=== PATIENT | male | born 1985 | race Caucasian/White ===

== ENCOUNTER 2021-01-01 11:25 | Inpatient (IN) | payer OTHER ==
[~2021-01-01] VITALS: Ht 175.3 cm; Wt 176.8 kg
[~2021-01-01 11:25] MED LIST: OMNIPAQUE 350 MG/ML, 100ML BOTTLE ONE
[2021-01-01 12:43] LABS: BASOPHILS % (AUTO) 0 % (0-1); EOSINOPHILS % (AUTO) 1 % (1-7); LYMPHOCYTES % (AUTO) 16 % (22-44); MEAN CORPUSCULAR HEMOGLOBIN 28.9 pg (27.5-34.5); MEAN CORPUSCULAR HGB CONC 33.9 g/dL (33.2-36.2); MONOCYTES % (AUTO) 8 % (2-9); NEUTROPHILS % (AUTO) 75 % (42-75); PLATELET COUNT 301 x10^3/uL (130-400); RED BLOOD COUNT 5.24 x10^6/uL (4.38-5.82); RED CELL DISTRIBUTION WIDTH 14.2 % (9.4-14.8)
[2021-01-01 12:46] LABS: ALBUMIN 3.8 g/dL (3.4-5.0); ANION GAP 5 mmol/L (5-15); CALCIUM 9.6 mg/dL (8.5-10.1); CHLORIDE 102 mmol/L (98-107); CREATININE 0.95 mg/dL (0.7-1.3)
--- NOTE | 2021-01-01 14:17 | NUR ---
ASSUMED CARE OF PATIENT. PATIENT REPORTS RIGHT GROIN PAIN. HX OF HERNIA REPAIR. VS STABLE. 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 SINUS TACH NOTED. AT BEDSIDE. CALL LIGHT IN PLACE. WILL CONTINUE TO MONITOR.
--- NOTE | 2021-01-01 14:56 | NUR ---
DR SIBLEY IN ROOM UPDATING PATIENT.
[2021-01-01] MEDS ORDERED: HYDROmorphone 1 MG/ML, 1ML INJ IV ONE (15:00)
[2021-01-01] MEDS ORDERED: ONDANSETRON 2MG/ML, 2ML IVPush ONE (15:00)
--- NOTE | 2021-01-01 15:06 | NUR ---
LAB IN ROOM GETTING BLOOD CULTURES
--- NOTE | 2021-01-01 15:13 | NUR ---
PT REPORTS HE IS NOT ABLE TO GIVE UA AT THIS TIME.
[2021-01-01] MEDS ORDERED: HYDROmorphone 1 MG/ML, 1ML INJ ONE ×2 (15:15→17:37)
[2021-01-01] MEDS ORDERED: ONDANSETRON 2MG/ML, 2ML ONE ×2 (15:15→17:37)
--- NOTE | 2021-01-01 16:30 | NUR ---
PT WENT TO CT
--- NOTE | 2021-01-01 17:01 | NUR ---
US IN ROOM
[2021-01-01] MEDS ORDERED: SODIUM CHLORIDE 0.9% 1,000 ML IV ONE (17:30)
[2021-01-01] MEDS ORDERED: ONDANSETRON 2MG/ML, 2ML IVPush PRN (17:30)
[2021-01-01] MEDS ORDERED: CEFOTETAN PMX 1GM/50ML 50 ML IVPB ONE ×2 (17:30→21:30)
[2021-01-01] MEDS ORDERED: HYDROmorphone 1 MG/ML, 1ML INJ IVPush PRN (17:30)
[2021-01-01] MEDS ORDERED: SODIUM CHLORIDE FLUSH 10ML SYR IVF PRN (17:30)
--- NOTE | 2021-01-01 17:30 | NUR ---
DR SIBLEY HAS UPDATED PATIENT
--- NOTE | 2021-01-01 17:35 | NUR ---
both blood cultures drawn
[2021-01-01 17:56] LABS: MICROSCOPIC INDICATED
[2021-01-01 20:00] VITALS: BP 120/77
[2021-01-01] MEDS ORDERED: MELATONIN 5 MG TABLET PO PRN (21:00)
[2021-01-01] MEDS ORDERED: DOCUSATE 100 MG CAPSULE PO PRN (21:00)
[2021-01-01] MEDS ORDERED: LIDODERM 5% PATCH TD PRN (21:00)
[2021-01-01] MEDS: SODIUM CHLORIDE 0.9% 1,000 ML IV SCH (21:21)
[2021-01-01] MEDS: NICOTINE 7 MG/24 HR PATCH.TD24 TD SCH (22:10)
[2021-01-01] MEDS: INSULIN LISPRO 100 UNITS/ML, PEN SQ-INSULIN SCH (23:00)
[2021-01-01] MEDS: HYDROmorphone 2 MG/ML, 1ML IVPush PRN (23:01)
[2021-01-02 01:06] VITALS: BP 134/82
[2021-01-02] MEDS: HYDROmorphone 2 MG/ML, 1ML IVPush PRN ×3 (02:20→09:15)
[2021-01-02] MEDS: SODIUM CHLORIDE 0.9% 1,000 ML IV SCH (03:36)
[2021-01-02 05:29] LABS: BASOPHILS % (AUTO) 0 % (0-1); EOSINOPHILS % (AUTO) 2 % (1-7); LYMPHOCYTES % (AUTO) 17 % (22-44); MEAN CORPUSCULAR HEMOGLOBIN 29.4 pg (27.5-34.5); MONOCYTES % (AUTO) 9 % (2-9); NEUTROPHILS % (AUTO) 72 % (42-75); PLATELET COUNT 258 x10^3/uL (130-400); RED BLOOD COUNT 4.55 x10^6/uL (4.38-5.82)
[2021-01-02] MEDS ORDERED: CEFOTETAN PMX 2GM/50ML 50 ML IV SCH (05:30)
[2021-01-02 05:41] LABS: CHLORIDE 102 mmol/L (98-107)
[2021-01-02 05:46] LABS: ANION GAP 8 mmol/L (5-15); CALCIUM 8.6 mg/dL (8.5-10.1); CREATININE 0.96 mg/dL (0.7-1.3)
[2021-01-02] MEDS: CEFTAROLINE 600 MG in SODIUM CHLORIDE 0.9% 100 ML IV SCH ×3 (06:45→20:49)
[2021-01-02] MEDS: INSULIN LISPRO 100 UNITS/ML, PEN SQ-INSULIN SCH ×4 (07:26→20:21)
[2021-01-02] MEDS: ONDANSETRON 2MG/ML, 2ML IVPush PRN (09:15)
[2021-01-02] MEDS: NICOTINE 7 MG/24 HR PATCH.TD24 TD SCH (09:16)
[2021-01-02] MEDS ORDERED: CYCL10TA2 PO (09:29)
[2021-01-02] MEDS ORDERED: OXYcodone IR 5MG TABLET PO PRN (09:30)
[2021-01-02] MEDS ORDERED: CYCLOBENZAPRINE 10 MG TABLET ONE (09:47)
[2021-01-02] MEDS: CYCLOBENZAPRINE 10 MG TABLET PO SCH ×2 (09:55→20:22)
[2021-01-02 10:39] VITALS: BP 122/71
[2021-01-02] MEDS: ENOXAPARIN 30 MG/0.3 ML SQ SCH (14:09)
[2021-01-02 14:20] VITALS: BP 138/87
[2021-01-02 14:55] VITALS: BP 125/84
[2021-01-02] MEDS: ACETAMINOPHEN 325 MG TABLET PO PRN ×2 (15:07→21:01)
[2021-01-02 15:32] VITALS: BP 125/82
[2021-01-02] MEDS: HYDROcodone/APAP 5/325 TABLET PO PRN (17:10)
[2021-01-02 19:30] VITALS: BP 133/75
[2021-01-03] MEDS: ENOXAPARIN 30 MG/0.3 ML SQ SCH ×3 (01:58→20:31)
[2021-01-03 02:07] VITALS: BP 155/84
[2021-01-03] MEDS: HYDROmorphone 2 MG/ML, 1ML IVPush PRN ×5 (03:58→20:37)
[2021-01-03] MEDS: ONDANSETRON 2MG/ML, 2ML IVPush PRN (04:13)
[2021-01-03] MEDS: INSULIN LISPRO 100 UNITS/ML, PEN SQ-INSULIN SCH ×4 (07:00→20:47)
[2021-01-03 07:20] VITALS: BP 101/65
[2021-01-03] MEDS: CYCLOBENZAPRINE 10 MG TABLET PO SCH ×2 (08:05→20:31)
[2021-01-03] MEDS: NICOTINE 7 MG/24 HR PATCH.TD24 TD SCH (08:11)
[2021-01-03] MEDS: CEFTAROLINE 600 MG in SODIUM CHLORIDE 0.9% 100 ML IV SCH ×2 (08:11→20:31)
[2021-01-03] MEDS ORDERED: MIDAZOLAM 1 MG/ML, 2ML ONE (13:22)
[2021-01-03] MEDS ORDERED: HYDROmorphone 1 MG/ML, 1ML INJ ONE (13:22)
[2021-01-03] MEDS ORDERED: FENTANYL PF 250 MCG/5ML ONE (13:22)
[2021-01-03] MEDS ORDERED: EPINEPHRINE 1 MG/ML, 1ML ONE (13:43)
[2021-01-03] MEDS ORDERED: BACITRACIN 50,000 UNIT ONE (13:43)
[2021-01-03] MEDS ORDERED: BUPIVACAINE/PF 0.5% ONE (13:43)
[2021-01-03] MEDS ORDERED: LIDOCAINE-MPF 2% ,5ML ONE (13:57)
[2021-01-03] MEDS ORDERED: ONDANSETRON 2MG/ML, 2ML ONE (13:57)
[2021-01-03] MEDS ORDERED: PHENYLEPHRINE 10 MG/ML ONE (13:57)
[2021-01-03] MEDS ORDERED: PROPOFOL 10 MG/ML, 20ML ONE ×2 (13:57)
[2021-01-03] MEDS ORDERED: ROCURONIUM 10MG/ML,5ML ONE (13:57)
[2021-01-03] MEDS ORDERED: SUGAMMADEX 200 MG/2 ML IVPush ONE (13:57)
[2021-01-03] MEDS ORDERED: CHLORHEXIDINE 15 ML UDC PO ONE (14:00)
[2021-01-03] MEDS ORDERED: ACETAMINOPHEN 650 MG/20.3 ML UDC ONE (15:22)
[2021-01-03] MEDS ORDERED: OXYcodone 5 MG/5 ML ORAL.SOL UDC ONE ×2 (15:22→16:06)
[2021-01-03] MEDS ORDERED: LABETALOL 5MG/ML, 20ML ONE (15:26)
[2021-01-03] MEDS ORDERED: FENTANYL PF 100 MCG/2ML ONE (15:26)
[2021-01-03] MEDS ORDERED: HALOPERIDOL 5 MG/ML IV PRN (15:30)
[2021-01-03] MEDS ORDERED: HYDROmorphone 1 MG/ML, 1ML INJ IVPush PRN (15:30)
[2021-01-03] MEDS ORDERED: EPHEDRINE 50 MG/ML, 1ML IVPush PRN (15:30)
[2021-01-03] MEDS ORDERED: ACETAMINOPHEN 325 MG TABLET PO PRN (15:30)
[2021-01-03] MEDS ORDERED: FENTANYL PF 100 MCG/2ML IV PRN (15:30)
[2021-01-03] MEDS ORDERED: ONDANSETRON 2MG/ML, 2ML IVPush PRN (15:30)
[2021-01-03] MEDS ORDERED: METOPROLOL 1 MG/ML, 5ML IV PRN (15:30)
[2021-01-03] MEDS ORDERED: hydrALAzine 20 MG/ML, 1ML IV PRN (15:30)
[2021-01-03] MEDS ORDERED: OXYcodone 5 MG/5 ML ORAL.SOL UDC PO PRN (15:30)
[2021-01-03] MEDS ORDERED: PROMETHAZINE 25 MG/ML, 1ML IVPush PRN (15:30)
[2021-01-03] MEDS ORDERED: LABETALOL 5MG/ML, 20ML IV PRN (15:30)
[2021-01-03] MEDS ORDERED: DIPHENHYDRAMINE 50 MG/ML, 1ML IVPush PRN (15:30)
[2021-01-03] MEDS ORDERED: METOCLOPRAMIDE 5 MG/ML, 2ML IVPush PRN (15:30)
[2021-01-03] MEDS: metFORMIN 500 MG TABLET PO SCH (16:58)
[2021-01-03 20:00] VITALS: BP 110/70
[2021-01-03 23:49] VITALS: BP 114/66
[2021-01-04] MEDS: HYDROmorphone 2 MG/ML, 1ML IVPush PRN ×4 (00:51→11:47)
[2021-01-04 03:57] VITALS: BP 116/79
[2021-01-04] MEDS: INSULIN LISPRO 100 UNITS/ML, PEN SQ-INSULIN SCH ×4 (06:20→21:00)
[2021-01-04 07:34] VITALS: BP 122/77
[2021-01-04] MEDS: CEFTAROLINE 600 MG in SODIUM CHLORIDE 0.9% 100 ML IV SCH ×2 (09:07→21:18)
[2021-01-04] MEDS: ENOXAPARIN 30 MG/0.3 ML SQ SCH ×2 (09:08→21:18)
[2021-01-04] MEDS: metFORMIN 500 MG TABLET PO SCH ×2 (09:08→17:41)
[2021-01-04] MEDS: ACETAMINOPHEN 325 MG TABLET PO PRN ×2 (09:08→13:22)
[2021-01-04] MEDS: CYCLOBENZAPRINE 10 MG TABLET PO SCH ×2 (09:08→21:18)
[2021-01-04] MEDS: NICOTINE 7 MG/24 HR PATCH.TD24 TD SCH (11:50)
[2021-01-04 12:29] VITALS: BP 128/78
[2021-01-04] MEDS: HYDROcodone/APAP 5/325 TABLET PO PRN ×3 (13:22→21:18)
[2021-01-04 19:21] VITALS: BP 123/82
[2021-01-05] MEDS: ACETAMINOPHEN 325 MG TABLET PO PRN (00:12)
[2021-01-05 00:13] VITALS: BP 135/80
[2021-01-05 01:00] VITALS: BP 116/73
[2021-01-05] MEDS: INSULIN LISPRO 100 UNITS/ML, PEN SQ-INSULIN SCH ×4 (04:36→19:40)
[2021-01-05] MEDS: HYDROcodone/APAP 5/325 TABLET PO PRN (05:03)
[2021-01-05 07:26] VITALS: BP 119/76
[2021-01-05] MEDS: NICOTINE 7 MG/24 HR PATCH.TD24 TD SCH (07:57)
[2021-01-05] MEDS: CYCLOBENZAPRINE 10 MG TABLET PO SCH ×2 (07:57→21:51)
[2021-01-05] MEDS: metFORMIN 500 MG TABLET PO SCH ×2 (07:57→17:19)
[2021-01-05] MEDS: HYDROmorphone 2 MG/ML, 1ML IVPush PRN ×3 (07:58→14:30)
[2021-01-05] MEDS: ENOXAPARIN 30 MG/0.3 ML SQ SCH ×2 (10:10→21:51)
[2021-01-05] MEDS: CEFTAROLINE 600 MG in SODIUM CHLORIDE 0.9% 100 ML IV SCH ×2 (10:39→21:51)
[2021-01-05 12:44] VITALS: BP 120/71
[2021-01-05] MEDS: HYDROcodone/APAP 10/325 MG TABLET PO PRN ×2 (18:53→22:57)
[2021-01-05 19:11] VITALS: BP 107/65
[2021-01-06] MEDS: CEFTAROLINE 600 MG in SODIUM CHLORIDE 0.9% 100 ML IV SCH ×2 (00:30→12:40)
[2021-01-06 00:39] VITALS: BP 118/76
[2021-01-06] MEDS: HYDROcodone/APAP 10/325 MG TABLET PO PRN ×2 (05:14→08:32)
[2021-01-06] MEDS: ONDANSETRON 2MG/ML, 2ML IVPush PRN (05:20)
[2021-01-06] MEDS: HYDROmorphone 2 MG/ML, 1ML IVPush PRN ×2 (05:20→10:20)
[2021-01-06] MEDS: ACETAMINOPHEN 325 MG TABLET PO PRN (05:31)
[2021-01-06] MEDS: INSULIN LISPRO 100 UNITS/ML, PEN SQ-INSULIN SCH ×4 (07:00→21:00)
[2021-01-06 07:15] VITALS: BP 115/71
[2021-01-06] MEDS: metFORMIN 500 MG TABLET PO SCH ×2 (07:40→16:52)
[2021-01-06] MEDS: CYCLOBENZAPRINE 10 MG TABLET PO SCH ×2 (07:40→21:12)
[2021-01-06] MEDS: NICOTINE 7 MG/24 HR PATCH.TD24 TD SCH (07:40)
[2021-01-06] MEDS: ENOXAPARIN 30 MG/0.3 ML SQ SCH ×2 (07:41→21:13)
[2021-01-06 07:53] LABS: MEAN CORPUSCULAR HEMOGLOBIN 28.9 pg (27.5-34.5); MEAN CORPUSCULAR HGB CONC 33.8 g/dL (33.2-36.2); MEAN PLATELET VOLUME 6.3 fL (7.4-10.4); PLATELET COUNT 333 x10^3/uL (130-400); RED BLOOD COUNT 4.31 x10^6/uL (4.38-5.82)
[2021-01-06 08:23] LABS: <PLATELET ESTIMATE> ADEQUATE; <PLT MORPHOLOGY> NORMAL PLT MORPH; <RBC MORPHOLOGY> NORMAL; BAND#(MANUAL) 0.57 x10^3/uL; BANDS%(MANUAL) 7 % (0-7); EOS#(MANUAL) 0.25 x10^3/uL (0.0-0.4); EOS% (MANUAL) 3 % (1-7); LYMPH#(MANUAL) 1.15 x10^3/uL (1-3.4); LYMPHS% (MANUAL) 14 % (22-44); METAMYELOCYTES# (MANUAL) 0.16 x10^3/uL (0-0); METAMYELOCYTES% (MANUAL) 2 % (0-1); MONOS#(MANUAL) 0.33 x10^3/uL (0.3-2.7); MONOS% (MANUAL) 4 % (2-9); SEG#(MANUAL) 5.74 x10^3/uL (1.8-6.8); SEGS% (MANUAL) 70 % (42-75)
[2021-01-06] MEDS: KETOROLAC 30 MG/1 ML IVPush SCH ×3 (10:20→21:40)
[2021-01-06] MEDS: GABAPENTIN 300 MG CAPSULE PO SCH ×3 (10:26→21:12)
[2021-01-06] MEDS ORDERED: OMNIPAQUE 350 MG/ML, 150 ML BOTTLE ONE (11:56)
[2021-01-06 13:00] VITALS: BP 131/81
[2021-01-06] MEDS: OXYcodone/APAP 10/325MG TABLET PO PRN ×3 (14:45→23:40)
[2021-01-06] MEDS: NICOTINE 14MG/24 HR PATCH.TD24 TD SCH (18:09)
[2021-01-06 21:19] VITALS: BP 124/66
[2021-01-07] MEDS: CEFTAROLINE 600 MG in SODIUM CHLORIDE 0.9% 100 ML IV SCH (00:30)
[2021-01-07 02:55] VITALS: BP 107/67
[2021-01-07] MEDS: KETOROLAC 30 MG/1 ML IVPush SCH ×3 (03:25→16:15)
[2021-01-07] MEDS: OXYcodone/APAP 10/325MG TABLET PO PRN ×4 (05:19→19:52)
[2021-01-07 06:11] LABS: MEAN CORPUSCULAR HEMOGLOBIN 29.5 pg (27.5-34.5); MEAN CORPUSCULAR HGB CONC 34.3 g/dL (33.2-36.2); MEAN PLATELET VOLUME 6.2 fL (7.4-10.4); PLATELET COUNT 350 x10^3/uL (130-400); RED BLOOD COUNT 3.95 x10^6/uL (4.38-5.82); RED CELL DISTRIBUTION WIDTH 13.8 % (9.4-14.8)
[2021-01-07 06:20] LABS: ANION GAP 7 mmol/L (5-15); CALCIUM 8.7 mg/dL (8.5-10.1); CHLORIDE 101 mmol/L (98-107); CREATININE 0.88 mg/dL (0.7-1.3)
[2021-01-07] MEDS ORDERED: POTASSIUM CHLORIDE 20 MEQ TAB.ER.PRT PO ONE (06:30)
[2021-01-07 06:52] LABS: BASOS#(MANUAL) 0.08 x10^3/uL (0-0.1); BASOS% (MANUAL) 1 % (0-1); EOS#(MANUAL) 0.39 x10^3/uL (0.0-0.4); EOS% (MANUAL) 5 % (1-7); LYMPH#(MANUAL) 1.08 x10^3/uL (1-3.4); LYMPHS% (MANUAL) 14 % (22-44); METAMYELOCYTES# (MANUAL) 0.31 x10^3/uL (0-0); METAMYELOCYTES% (MANUAL) 4 % (0-1); MONOS#(MANUAL) 0.39 x10^3/uL (0.3-2.7); MONOS% (MANUAL) 5 % (2-9); MYELOCYTES# (MANUAL) 0.31 x10^3/uL (0-0); MYELOCYTES% (MANUAL) 4 % (0-0); SEG#(MANUAL) 5.16 x10^3/uL (1.8-6.8); SEGS% (MANUAL) 67 % (42-75)
[2021-01-07 06:53] LABS: <PLATELET ESTIMATE> ADEQUATE; <PLT MORPHOLOGY> NORMAL PLT MORPH; <RBC MORPHOLOGY> NORMAL
[2021-01-07] MEDS: INSULIN LISPRO 100 UNITS/ML, PEN SQ-INSULIN SCH ×4 (07:00→21:00)
[2021-01-07] MEDS: GABAPENTIN 300 MG CAPSULE PO SCH ×3 (09:34→21:07)
[2021-01-07] MEDS: CYCLOBENZAPRINE 10 MG TABLET PO SCH ×2 (09:34→21:07)
[2021-01-07] MEDS: metFORMIN 500 MG TABLET PO SCH (09:35)
[2021-01-07] MEDS: CLINDAMYCIN 300 MG CAPSULE PO SCH ×2 (09:35→16:16)
[2021-01-07] MEDS: ENOXAPARIN 30 MG/0.3 ML SQ SCH ×2 (09:36→21:08)
[2021-01-07 10:49] VITALS: BP 105/65
[2021-01-07] MEDS: CEPHALEXIN 500 MG CAPSULE PO SCH ×2 (12:07→16:16)
[2021-01-07] MEDS ORDERED: HYDROmorphone 1 MG/ML, 1ML INJ ONE (13:28)
[2021-01-07] MEDS ORDERED: HYDROmorphone 1 MG/ML, 1ML INJ IV ONE (13:30)
[2021-01-07 13:33] VITALS: BP 129/78
[2021-01-07] MEDS: NICOTINE 14MG/24 HR PATCH.TD24 TD SCH (16:36)
[2021-01-07 18:45] VITALS: BP 113/66
[2021-01-07] MEDS: MEROPENEM 1 GM in SODIUM CHLORIDE 0.9% 100 ML IV SCH (19:44)
[2021-01-08] MEDS: KETOROLAC 30 MG/1 ML IVPush SCH ×4 (01:14→18:04)
[2021-01-08] MEDS: OXYcodone/APAP 10/325MG TABLET PO PRN ×5 (01:14→21:07)
[2021-01-08 01:18] VITALS: BP 110/56
[2021-01-08] MEDS: MEROPENEM 1 GM in SODIUM CHLORIDE 0.9% 100 ML IV SCH ×4 (04:17→21:11)
[2021-01-08 05:44] LABS: HCT (SEDRATE) 34.8 % (39.2-51.8)
[2021-01-08] MEDS: INSULIN LISPRO 100 UNITS/ML, PEN SQ-INSULIN SCH ×4 (06:37→21:00)
[2021-01-08 07:03] LABS: MEAN CORPUSCULAR HEMOGLOBIN 29.1 pg (27.5-34.5); MEAN CORPUSCULAR HGB CONC 34.4 g/dL (33.2-36.2); MEAN PLATELET VOLUME 6.4 fL (7.4-10.4); PLATELET COUNT 342 x10^3/uL (130-400); RED BLOOD COUNT 4.16 x10^6/uL (4.38-5.82)
[2021-01-08 07:14] LABS: ANION GAP 5 mmol/L (5-15); CALCIUM 8.7 mg/dL (8.5-10.1); CHLORIDE 105 mmol/L (98-107); CREATININE 0.75 mg/dL (0.7-1.3)
[2021-01-08 07:30] VITALS: BP 120/81
[2021-01-08] MEDS: ENOXAPARIN 30 MG/0.3 ML SQ SCH ×2 (07:51→21:08)
[2021-01-08] MEDS: CYCLOBENZAPRINE 10 MG TABLET PO SCH ×2 (07:51→21:07)
[2021-01-08] MEDS: GABAPENTIN 300 MG CAPSULE PO SCH ×3 (07:51→21:07)
[2021-01-08 07:59] LABS: BAND#(MANUAL) 0.74 x10^3/uL; BANDS%(MANUAL) 8 % (0-7); EOS#(MANUAL) 0.47 x10^3/uL (0.0-0.4); EOS% (MANUAL) 5 % (1-7); LYMPH#(MANUAL) 1.12 x10^3/uL (1-3.4); LYMPHS% (MANUAL) 12 % (22-44); METAMYELOCYTES# (MANUAL) 0.47 x10^3/uL (0-0); METAMYELOCYTES% (MANUAL) 5 % (0-1); MONOS#(MANUAL) 0.47 x10^3/uL (0.3-2.7); MONOS% (MANUAL) 5 % (2-9); MYELOCYTES# (MANUAL) 0.09 x10^3/uL (0-0); MYELOCYTES% (MANUAL) 1 % (0-0); SEG#(MANUAL) 5.95 x10^3/uL (1.8-6.8); SEGS% (MANUAL) 64 % (42-75)
[2021-01-08 08:00] LABS: <PLATELET ESTIMATE> ADEQUATE; <PLT MORPHOLOGY> NORMAL PLT MORPH; <RBC MORPHOLOGY> NORMAL
[2021-01-08] MEDS ORDERED: HYDROmorphone 1 MG/ML, 1ML INJ IV PRN ×2 (09:00→10:00)
[2021-01-08] MEDS: metFORMIN 500 MG TABLET PO SCH ×2 (10:24→16:33)
[2021-01-08 13:34] VITALS: BP 125/78
[2021-01-08] MEDS: NICOTINE 14MG/24 HR PATCH.TD24 TD SCH (16:33)
[2021-01-08 20:25] VITALS: BP 110/60
[2021-01-09 00:21] VITALS: BP 126/79
[2021-01-09] MEDS: KETOROLAC 30 MG/1 ML IVPush SCH ×5 (01:16→23:40)
[2021-01-09] MEDS: OXYcodone/APAP 10/325MG TABLET PO PRN ×6 (01:17→22:20)
[2021-01-09] MEDS: MEROPENEM 1 GM in SODIUM CHLORIDE 0.9% 100 ML IV SCH ×4 (04:10→23:26)
[2021-01-09 05:51] LABS: MEAN CORPUSCULAR HEMOGLOBIN 29.3 pg (27.5-34.5); MEAN CORPUSCULAR HGB CONC 33.9 g/dL (33.2-36.2); PLATELET COUNT 384 x10^3/uL (130-400); RED BLOOD COUNT 4.03 x10^6/uL (4.38-5.82); RED CELL DISTRIBUTION WIDTH 13.8 % (9.4-14.8)
[2021-01-09 06:10] LABS: ANION GAP 4 mmol/L (5-15); CALCIUM 8.6 mg/dL (8.5-10.1); CHLORIDE 108 mmol/L (98-107); CREATININE 0.81 mg/dL (0.7-1.3)
[2021-01-09] MEDS: INSULIN LISPRO 100 UNITS/ML, PEN SQ-INSULIN SCH ×4 (06:31→22:20)
[2021-01-09 06:33] LABS: <PLATELET ESTIMATE> ADEQUATE; <PLT MORPHOLOGY> NORMAL PLT MORPH; <RBC MORPHOLOGY> NORMAL; BAND#(MANUAL) 0.86 x10^3/uL; BANDS%(MANUAL) 9 % (0-7); EOS#(MANUAL) 0.48 x10^3/uL (0.0-0.4); EOS% (MANUAL) 5 % (1-7); LYMPH#(MANUAL) 1.44 x10^3/uL (1-3.4); LYMPHS% (MANUAL) 15 % (22-44); METAMYELOCYTES% (MANUAL) 1 % (0-1); MONOS% (MANUAL) 1 % (2-9); MYELOCYTES# (MANUAL) 0.19 x10^3/uL (0-0); MYELOCYTES% (MANUAL) 2 % (0-0); SEG#(MANUAL) 6.43 x10^3/uL (1.8-6.8); SEGS% (MANUAL) 67 % (42-75)
[2021-01-09] MEDS: GABAPENTIN 300 MG CAPSULE PO SCH ×3 (09:19→22:20)
[2021-01-09] MEDS: CYCLOBENZAPRINE 10 MG TABLET PO SCH ×2 (09:19→22:20)
[2021-01-09] MEDS: metFORMIN 500 MG TABLET PO SCH ×2 (09:19→15:57)
[2021-01-09] MEDS: ENOXAPARIN 30 MG/0.3 ML SQ SCH ×2 (09:20→22:20)
[2021-01-09 09:37] VITALS: BP 109/72
[2021-01-09] MEDS ORDERED: HYDROmorphone 1 MG/ML, 1ML INJ IV PRN (11:30)
[2021-01-09 13:49] VITALS: BP 140/76
[2021-01-09] MEDS: NICOTINE 14MG/24 HR PATCH.TD24 TD SCH (15:57)
[2021-01-09 20:23] VITALS: BP 125/74
[2021-01-09] MEDS: HYDROmorphone 1 MG/ML, 1ML INJ IV PRN (23:40)
[2021-01-10 01:03] VITALS: BP 142/88
[2021-01-10] MEDS: KETOROLAC 30 MG/1 ML IVPush SCH ×4 (06:01→23:59)
[2021-01-10] MEDS: MEROPENEM 1 GM in SODIUM CHLORIDE 0.9% 100 ML IV SCH (06:01)
[2021-01-10] MEDS: OXYcodone/APAP 10/325MG TABLET PO PRN ×4 (06:17→22:05)
[2021-01-10] MEDS: INSULIN LISPRO 100 UNITS/ML, PEN SQ-INSULIN SCH ×4 (07:00→22:11)
[2021-01-10 07:52] VITALS: BP 128/83
[2021-01-10] MEDS: CYCLOBENZAPRINE 10 MG TABLET PO SCH ×2 (08:18→22:03)
[2021-01-10] MEDS: GABAPENTIN 300 MG CAPSULE PO SCH ×3 (08:18→22:03)
[2021-01-10] MEDS: ENOXAPARIN 30 MG/0.3 ML SQ SCH ×2 (08:18→22:03)
[2021-01-10] MEDS: metFORMIN 500 MG TABLET PO SCH ×2 (08:18→17:48)
[2021-01-10] MEDS: HYDROmorphone 1 MG/ML, 1ML INJ IV PRN (10:30)
[2021-01-10] MEDS ORDERED: FUROSEMIDE 20 MG/2 ML IV ONE (11:00)
[2021-01-10] MEDS: FLUCONAZOLE 200 MG TABLET PO SCH (12:43)
[2021-01-10] MEDS: ERTAPENEM 1 GM in SODIUM CHLORIDE 0.9% 50 ML IV SCH (12:43)
[2021-01-10 14:30] VITALS: BP 129/85
[2021-01-10] MEDS: NICOTINE 14MG/24 HR PATCH.TD24 TD SCH (17:49)
[2021-01-10 19:20] VITALS: BP 127/85
[2021-01-11 00:20] VITALS: BP 126/79
[2021-01-11] MEDS: KETOROLAC 30 MG/1 ML IVPush SCH (06:11)
[2021-01-11] MEDS: OXYcodone/APAP 10/325MG TABLET PO PRN ×6 (06:15→23:56)
[2021-01-11] MEDS: INSULIN LISPRO 100 UNITS/ML, PEN SQ-INSULIN SCH ×4 (07:00→21:09)
[2021-01-11 07:57] VITALS: BP 125/92
[2021-01-11 07:58] VITALS: BP 116/69
[2021-01-11] MEDS ORDERED: FUROSEMIDE 40 MG TABLET PO ONE (08:12)
[2021-01-11] MEDS: GABAPENTIN 300 MG CAPSULE PO SCH ×3 (08:37→21:07)
[2021-01-11] MEDS: metFORMIN 500 MG TABLET PO SCH ×2 (08:38→16:28)
[2021-01-11] MEDS: CYCLOBENZAPRINE 10 MG TABLET PO SCH ×2 (08:38→20:08)
[2021-01-11] MEDS: ENOXAPARIN 30 MG/0.3 ML SQ SCH ×2 (08:42→21:08)
[2021-01-11] MEDS: ERTAPENEM 1 GM in SODIUM CHLORIDE 0.9% 50 ML IV SCH (11:08)
[2021-01-11] MEDS: FLUCONAZOLE 200 MG TABLET PO SCH (12:09)
[2021-01-11] MEDS: HYDROmorphone 1 MG/ML, 1ML INJ IV PRN (13:11)
[2021-01-11 13:53] VITALS: BP 143/91
[2021-01-11] MEDS: NICOTINE 14MG/24 HR PATCH.TD24 TD SCH (16:29)
[2021-01-11 21:34] VITALS: BP 124/79
[2021-01-12 03:19] VITALS: BP 125/86
[2021-01-12] MEDS: OXYcodone/APAP 10/325MG TABLET PO PRN ×5 (04:04→23:02)
[2021-01-12 04:19] LABS: MEAN CORPUSCULAR HEMOGLOBIN 29.1 pg (27.5-34.5); MEAN CORPUSCULAR HGB CONC 34.3 g/dL (33.2-36.2); MEAN PLATELET VOLUME 5.9 fL (7.4-10.4); PLATELET COUNT 381 x10^3/uL (130-400); RED BLOOD COUNT 4.12 x10^6/uL (4.38-5.82); RED CELL DISTRIBUTION WIDTH 14.3 % (9.4-14.8)
[2021-01-12 04:27] LABS: ANION GAP 5 mmol/L (5-15); CHLORIDE 103 mmol/L (98-107); CREATININE 0.78 mg/dL (0.7-1.3)
[2021-01-12 05:47] LABS: BAND#(MANUAL) 0.64 x10^3/uL; BANDS%(MANUAL) 8 % (0-7); EOS% (MANUAL) 5 % (1-7); LYMPHS% (MANUAL) 25 % (22-44); METAMYELOCYTES% (MANUAL) 5 % (0-1); MONOS#(MANUAL) 0.48 x10^3/uL (0.3-2.7); MONOS% (MANUAL) 6 % (2-9); MYELOCYTES# (MANUAL) 0.16 x10^3/uL (0-0); MYELOCYTES% (MANUAL) 2 % (0-0); SEG#(MANUAL) 3.92 x10^3/uL (1.8-6.8); SEGS% (MANUAL) 49 % (42-75)
[2021-01-12 05:48] LABS: <PLATELET ESTIMATE> ADEQUATE; <PLT MORPHOLOGY> NORMAL PLT MORPH; <RBC MORPHOLOGY> NORMAL
[2021-01-12] MEDS: FUROSEMIDE 40 MG TABLET PO SCH ×2 (06:18→09:00)
[2021-01-12] MEDS: INSULIN LISPRO 100 UNITS/ML, PEN SQ-INSULIN SCH ×3 (06:20→16:00)
[2021-01-12 08:00] VITALS: BP 124/79
[2021-01-12] MEDS: GABAPENTIN 300 MG CAPSULE PO SCH ×4 (09:24→21:02)
[2021-01-12] MEDS: metFORMIN 500 MG TABLET PO SCH ×2 (09:24→17:52)
[2021-01-12] MEDS: CYCLOBENZAPRINE 10 MG TABLET PO SCH ×2 (09:24→21:02)
[2021-01-12] MEDS: ENOXAPARIN 30 MG/0.3 ML SQ SCH ×2 (10:25→21:03)
[2021-01-12] MEDS: HYDROmorphone 1 MG/ML, 1ML INJ IV PRN (10:26)
[2021-01-12] MEDS: ERTAPENEM 1 GM in SODIUM CHLORIDE 0.9% 50 ML IV SCH (12:17)
[2021-01-12 13:58] VITALS: BP 115/72
[2021-01-12] MEDS: FLUCONAZOLE 200 MG TABLET PO SCH (14:12)
[2021-01-12] MEDS: NICOTINE 14MG/24 HR PATCH.TD24 TD SCH (17:52)
[2021-01-12 20:54] VITALS: BP 125/88
[2021-01-13 02:30] VITALS: BP 117/77
[2021-01-13 07:40] VITALS: BP_SYST 129; BP_SYST 147; BP_DIAS 82; BP_DIAS 89
[2021-01-13] MEDS: CYCLOBENZAPRINE 10 MG TABLET PO SCH ×2 (07:51→19:55)
[2021-01-13] MEDS: HYDROmorphone 1 MG/ML, 1ML INJ IV PRN (07:51)
[2021-01-13] MEDS: GABAPENTIN 300 MG CAPSULE PO SCH ×2 (07:51→17:27)
[2021-01-13] MEDS: metFORMIN 500 MG TABLET PO SCH ×2 (07:51→17:27)
[2021-01-13] MEDS: FUROSEMIDE 40 MG TABLET PO SCH (07:52)
[2021-01-13] MEDS: ERTAPENEM 1 GM in SODIUM CHLORIDE 0.9% 50 ML IV SCH (11:03)
[2021-01-13] MEDS: FLUCONAZOLE 200 MG TABLET PO SCH (11:04)
[2021-01-13] MEDS: OXYcodone/APAP 10/325MG TABLET PO PRN ×3 (11:04→19:55)
[2021-01-13] MEDS: ENOXAPARIN 30 MG/0.3 ML SQ SCH ×2 (11:04→19:55)
[2021-01-13 14:40] VITALS: BP 132/76
[2021-01-13] MEDS: NICOTINE 14MG/24 HR PATCH.TD24 TD SCH (17:27)
[2021-01-13 20:09] VITALS: BP 124/83
[2021-01-13] MEDS ORDERED: OXYcodone/APAP 10/325MG TABLET PO ONE (23:00)
[2021-01-14] MEDS: GABAPENTIN 300 MG CAPSULE PO SCH ×4 (00:17→20:28)
[2021-01-14 00:27] VITALS: BP 129/82
[2021-01-14] MEDS: OXYcodone/APAP 10/325MG TABLET PO PRN ×4 (07:05→20:35)
[2021-01-14 07:52] VITALS: BP 112/74
[2021-01-14] MEDS: FUROSEMIDE 40 MG TABLET PO SCH (09:03)
[2021-01-14] MEDS: CYCLOBENZAPRINE 10 MG TABLET PO SCH ×2 (09:03→20:28)
[2021-01-14] MEDS: metFORMIN 500 MG TABLET PO SCH ×2 (09:03→16:36)
[2021-01-14] MEDS: ENOXAPARIN 30 MG/0.3 ML SQ SCH ×2 (09:03→20:29)
[2021-01-14] MEDS: MICAFUNGIN 100 MG in SODIUM CHLORIDE 0.9% 100 ML IV SCH (10:58)
[2021-01-14] MEDS: ERTAPENEM 1 GM in SODIUM CHLORIDE 0.9% 50 ML IV SCH (12:28)
[2021-01-14 13:23] VITALS: BP 140/77
[2021-01-14] MEDS: NICOTINE 14MG/24 HR PATCH.TD24 TD SCH (16:36)
[2021-01-14] MEDS: HYDROmorphone 1 MG/ML, 1ML INJ IV PRN (17:50)
[2021-01-14 19:05] VITALS: BP 137/89
[2021-01-15] MEDS: OXYcodone/APAP 10/325MG TABLET PO PRN ×4 (00:34→16:23)
[2021-01-15 00:40] VITALS: BP 119/82
[2021-01-15 07:30] VITALS: BP 131/82
[2021-01-15 07:34] LABS: MEAN CORPUSCULAR HEMOGLOBIN 28.8 pg (27.5-34.5); MEAN PLATELET VOLUME 6.3 fL (7.4-10.4); PLATELET COUNT 385 x10^3/uL (130-400); RED BLOOD COUNT 4.55 x10^6/uL (4.38-5.82); RED CELL DISTRIBUTION WIDTH 13.9 % (9.4-14.8)
[2021-01-15 07:43] LABS: CHLORIDE 102 mmol/L (98-107)
[2021-01-15 07:56] LABS: ALANINE AMINOTRANSFERASE 129 U/L (12-78); ALBUMIN 3.4 g/dL (3.4-5.0); ALKALINE PHOSPHATASE 89 U/L (45-117); ANION GAP 6 mmol/L (5-15); BILIRUBIN,TOTAL 0.5 mg/dL (0.2-1.0); CALCIUM 9.1 mg/dL (8.5-10.1); CREATININE 0.84 mg/dL (0.7-1.3); TOTAL PROTEIN 7.9 g/dL (6.4-8.2)
[2021-01-15 08:05] LABS: <PLATELET ESTIMATE> ADEQUATE; <PLT MORPHOLOGY> NORMAL PLT MORPH; <RBC MORPHOLOGY> NORMAL; BAND#(MANUAL) 0.35 x10^3/uL; BANDS%(MANUAL) 5 % (0-7); EOS#(MANUAL) 0.21 x10^3/uL (0.0-0.4); EOS% (MANUAL) 3 % (1-7); LYMPH#(MANUAL) 2.42 x10^3/uL (1-3.4); LYMPHS% (MANUAL) 35 % (22-44); METAMYELOCYTES# (MANUAL) 0.14 x10^3/uL (0-0); METAMYELOCYTES% (MANUAL) 2 % (0-1); MONOS#(MANUAL) 0.21 x10^3/uL (0.3-2.7); MONOS% (MANUAL) 3 % (2-9); MYELOCYTES# (MANUAL) 0.14 x10^3/uL (0-0); MYELOCYTES% (MANUAL) 2 % (0-0); SEG#(MANUAL) 3.45 x10^3/uL (1.8-6.8); SEGS% (MANUAL) 50 % (42-75)
[2021-01-15] MEDS: HYDROmorphone 1 MG/ML, 1ML INJ IV PRN (08:36)
[2021-01-15] MEDS: metFORMIN 500 MG TABLET PO SCH ×2 (08:41→16:24)
[2021-01-15] MEDS: CYCLOBENZAPRINE 10 MG TABLET PO SCH (10:02)
[2021-01-15] MEDS: FUROSEMIDE 40 MG TABLET PO SCH (10:02)
[2021-01-15] MEDS: GABAPENTIN 300 MG CAPSULE PO SCH ×2 (10:02→16:22)
[2021-01-15] MEDS: MICAFUNGIN 100 MG in SODIUM CHLORIDE 0.9% 100 ML IV SCH (10:02)
[2021-01-15] MEDS: ENOXAPARIN 30 MG/0.3 ML SQ SCH (10:15)
[2021-01-15] MEDS: ERTAPENEM 1 GM in SODIUM CHLORIDE 0.9% 50 ML IV SCH (12:26)
[2021-01-15] MEDS ORDERED: GABA300C PO (13:09)
[2021-01-15] MEDS ORDERED: FURO40TA6 PO (13:09)
[2021-01-15] MEDS ORDERED: METF500T PO (13:09)
[2021-01-15] MEDS ORDERED: POTA10TA PO (13:11)
[2021-01-15 14:01] VITALS: BP 128/82
[2021-01-15 16:19] VITALS: BP 135/93
[2021-01-15 16:25] VITALS: BP 140/88
[2021-01-15] MEDS: NICOTINE 14MG/24 HR PATCH.TD24 TD SCH (17:32)
== END 2021-01-15 17:55 | disposition home or self-care (01) | DRG 908 ==
LOC: ED 14:41 → EDIP 17:30 → 4NE 19:35
PROVIDERS: ADMIT Internal Medicine; ATTEND Hospitalist
PROC: 5A09357 Assistance with Respiratory Ventilation, Less than 24 Consecutive Hours, Continuous Positive Airway Pressure (ICD-10-PCS; 2021-01-01)
PROC: 0J9C0ZZ Drainage of Pelvic Region Subcutaneous Tissue and Fascia, Open Approach (ICD-10-PCS; 2021-01-03)
PROC: 02HV33Z Insertion of Infusion Device into Superior Vena Cava, Percutaneous Approach (ICD-10-PCS; principal; 2021-01-10)
PROC: B5181ZA Fluoroscopy of Superior Vena Cava using Low Osmolar Contrast, Guidance (ICD-10-PCS; 2021-01-10)
DX: T85.79XA Infection and inflammatory reaction due to other internal prosthetic devices, implants and grafts, initial encounter (principal); L03.314 Cellulitis of groin; E66.2 Morbid (severe) obesity with alveolar hypoventilation; Z68.43 Body mass index [BMI] 50.0-59.9, adult; F17.213 Nicotine dependence, cigarettes, with withdrawal; L03.311 Cellulitis of abdominal wall; E11.65 Type 2 diabetes mellitus with hyperglycemia; E88.81 Metabolic syndrome and other insulin resistance; F12.90 Cannabis use, unspecified, uncomplicated; I25.2 Old myocardial infarction; J44.9 Chronic obstructive pulmonary disease, unspecified; K40.20 Bilateral inguinal hernia, without obstruction or gangrene, not specified as recurrent; N50.89 Other specified disorders of the male genital organs; G89.29 Other chronic pain; M54.5 Low back pain; R42 Dizziness and giddiness; R53.83 Other fatigue; Z71.6 Tobacco abuse counseling
CPT/HCPCS: 36415; 84145; 96374; 96375; 96376; 99285; J3490; S0020; 36573; 74177; 76857; 80048; 80053; 81001; 82040; 82962; 83036; 83605; 83735; 85025; 85651; 86140; 87040; 87070; 87075; 87076; 87186; 87205; 93005; G0378; J0171; J0712; J1170; J1335; J1650; J1885; J2185; J2248; J2250; J2405; J2704; J3010; Q9967; C1751; J1815; J1940; J2370; J7030

== ENCOUNTER → 2021-03-22 | Outpatient (CLI) | payer OTHER ==
[~2021-03-22] MED LIST changes: +CYCL10TA2 PO; +FURO40TA6 PO; +GABA300C PO; +LIDOCAINE 1%, 10ML ONE; +METF500T PO; -OMNIPAQUE 350 MG/ML, 100ML BOTTLE ONE; +POTA10TA PO
== END | disposition home or self-care (01) ==
LOC: RAD 12:47
PROVIDERS: ATTEND Surgery
DX: L02.224 Furuncle of groin (principal)
CPT/HCPCS: 10030